=== PATIENT | female | born 1980 | race Caucasian/White ===

== ENCOUNTER 2017-09-04 06:51 | Day surgery (SDC) | payer BC ==
[~2017-09-04 06:51] MED LIST: RINGER'S SOLUTION,LACTATED 1,000 ML IV PRN; ceFAZolin SODIUM 2 GM in DEXTROSE 5 % IN WATER 50 ML IV PRN
[2017-09-04 07:14] LABS: Hematocrit 41.9 % (37.0-47.0); Hemoglobin 14.4 gm/dL (12.5-16.0); Mean Cell Volume 87.1 fl (78-100); Mean Corpuscular Hemoglobin 29.9 pg (27-31); Mean Corpuscular Hgb Conc 34.4 g/dl (32-36); Mean Platelet Volume 9.5 fl (6.0-9.5); Neutrophil # 2.8 K/mm3 (1.3-6.0); Platelet Count 246 K/mm3 (150-450); Red Blood Count 4.81 M/mm3 (4.2-5.4); Red Cell Distribution Width 12.3 % (11.5-14.0); White Blood Count 5.6 K/mm3 (4.0-10.5)
[2017-09-04 07:31] LABS: Albumin * 4.3 gm/dl (3.4-5.0); Anion Gap 12.4 mmol/L (6.8-13.8); BUN/Creatinine Ratio 9.8 (9.0-21.6); Bilirubin, Total 0.4 mg/dL (0.0-1.1); Ca. Corrected For Albumin 8.1 mg/dL (8.4-10.2); Calcium * 8.7 mg/dL (7.9-10.9); Carbon Dioxide 24.7 mmol/L (24-32.6); Potassium 3.1 mmol/L (3.4-4.6); Total Protein 7.5 gm/dL (6.2-8.2)
[2017-09-04] MEDS ORDERED: RINGER'S SOLUTION,LACTATED 1,000 ML IV ONE ×3 (08:00→10:55)
[2017-09-04] MEDS ORDERED: ceFAZolin SODIUM 1 GM VIAL IV ONE (08:15)
[2017-09-04] MEDS ORDERED: BUPIVACAINE HCL 50 ML VIAL IJ ONE (08:30)
--- NOTE | 2017-09-04 11:51 | OR ---
Operative Report - Dictated Report Narrative: DATE OF PROCEDURE: 09/04/2017 PROCEDURE: 1. Total laparoscopic hysterectomy, bilateral salpingectomy 2. Diagnostic cystoscopy. ANESTHESIA: General, endotracheal intubation. PREOPERATIVE DIAGNOSES: 1. Menorrhagia, failed oral contraceptive pills 2. Dysmenorrhea 3. Chronic pelvic pain POSTOPERATIVE DIAGNOSES: 1. Menorrhagia, failed oral contraceptive pills 2. Dysmenorrhea 3. Chronic pelvic pain SURGEON: Nicholas Fajardo M.D. EXCAVATING MACHINE OPERATOR: Letha Mccabe FINDINGS: 1. Normal uterus, ovaries and tubes. There was small menstrual blood in the cul- de-sac (the patient was on her period). 2. There was no signs of endometriosis. 3. On cystoscopy, the bladder appeared intact and bilateral ureteral jets were seen. SPECIMENS: Uterus, cervix, and both tubes (removed in one piece) DRAINS: None. URINE OUTPUT: 1500 ml BLOOD LOSS: 50 ml INTRAOPARATIVE IV FLUIDS: 2400 ml COMPLICATIONS: None. DESCRIPTION OF PROCEDURE: The patient consented to the operation and was taken to the operating room. She was placed on the operating table supine. SCDs were placed on her lower extremities. General anesthesia was induced. Tho grams of ancef was given by IV prior to anesthesia induction. She was repositioned in the dorsal lithotomy position. Her right arm was tucked at her side under the drape. Exam under anesthesia revealed a normal size uterus with minimal descent and with no adnexal mass. The abdomen was prepped with Chloraprep and the vagina was prepped with Betadine. She was draped in the usual sterile fashion. A time-out procedure was conducted to confirm the correct patient for the correct procedure. After time-out, a Sprague catheter was placed into the bladder. A bivalve speculum was placed into the vagina. The vagina and the cervix were prepped with Betadine one more time. The anterior cervix was grasped with a single-tooth tenaculum. The uterus was sounded to 7 cm. A large VCare uterine manipulator was inserted into the uterine cavity. The balloon was inflated with 4 cc of air. The single-tooth tenaculum was removed. Huron speculum was removed. The upper VCare cup was advanced into the vagina to hug the cervix. The lower VCare cup was advanced into the vagina to align with the upper VCare cup and to provide pneumoperitoneum for the procedure. The lower VCare cup was fastened to the uterine manipulator. The surgeon then changed gloves and attention was paid to the abdomen. A small vertical incision was made at the lower edge of the umbilicus. A Veress needle was inserted into the abdominal cavity. Intraabdominal placement was confirmed with a saline drop test and with low entry pressure of 2 mmHg. The abdomen was insufflated with CO2 gas to an intraabdominal pressure of 15 mmHg. The Veress needle was removed. A 5 mm trocar with the laparoscope was inserted through the umbilicus incision into the abdomen. Intraabdominal placement was confirmed with the laparoscope. Survey of the entry site revealed no trauma to the underlying structures. The patient was then placed in Trendelenburg position. Three 5 mm trocars were placed in the lower abdomen. Both left and the right lower quadrant trocars (5 mm) were placed superior and medial to the anterior superior iliac spine to avoid vessels and nerves. A suprapubic trocar ( 5 mm) was placed in the midline. All trocars were placed under the direct visualization of the laparoscope. Survey of the abdomen and pelvis revealed the findings noted above. Attention was now turned to the left side. The left fallopian tube was elevated. The mesosalpinx was divided with the Thunderbeat. The division was carried to the cornual region. The uteroovarian ligament was divided with the Thunderbeat and the division was carried on the broad ligament through the round ligament towards the lower uterine segment. The course of the left ureter was not identified, but believed to be away from the surgical field. The broad ligament incision was into the anterior leaf and the posterior leaf. Anterior leaf of the broad ligament was dissected towards the bladder uterine reflection. The posterior leaf of the broad ligament was dissected towards the uterosacral ligament. The left uterine vessel was isolated and divided with the Thunderbeat. The lower uterine segment was dissected to free the bladder down. The cardinal ligament complex was divided with the Thunderbeat to the level of vaginal cervical junction. Attention was now turned to the right side. The right fallopian tube was elevated. The mesosalpinx was divided with the Thunderbeat. The division was carried to the cornual region. The uteroovarian ligament was divided with the Thunderbeat and the division was carried on the broad ligament through the round ligament towards the lower uterine segment. The course of the right ureter was identified and protected. The broad ligament incision was into the anterior leaf and the posterior leaf. The anterior leaf of the broad ligament was dissected towards the bladder uterine reflection and to meet with the opposite dissection point at the midline. The posterior leaf of the broad ligament was dissected towards the uterosacral ligament. The right uterine vessel was isolated, and divided with the Thunderbeat. The cardinal ligament complex was divided with the Thunderbeat to the level of vaginal cervical junction. The vaginal fornix was seen well through the VCare cup. The Thunderbeat was used to make an anterior colpotomy over the VCare cup groove. Entry into the vagina was without complications. A circumferential incision was made along the vaginal cervical junction using the VCare cup groove as a guide. Bilateral uterosacral ligament was divided. The cervix was completely divided from the vagina. The surgeon moved to the vaginal area to retrieve the specimen. The VCare uterine manipulator was removed. The cervix was grasped with a single tooth tenaculum. The uterus, cervix and both tubes were removed through the vagina in one piece. The vagina was packed with 2 moist laps to keep the pneumoperitoneum. The surgeon then changed gloves and attention was paid back to the abdomen. The pelvis was thoroughly irrigated with saline. The vaginal opening was closed transversely with 0 Vicryl Endoknot suture in an interrupted fashion using intracorporeal suturing technique and extracorporeal knot tying. The uterosacral ligament was sutured to the vaginal cuff corner for cuff support. The pelvis was irrigated with saline. Extra fluid was suctioned out from the abdomen and pelvis. There was hemostasis in all vessel pedicles. The patient was taken out of Trendelenburg. Three lower abdominal trocars were removed. The abdomen was deflated. The trocar at the umbilicus was removed with the laparoscope. The skin incision was closed with 4-0 Monocryl suture and 2 to 3 cc of 0.25% Marcaine was infiltrated around each incision for post op pain management. The incisions were covered with Dermabond. A diagnostic cystoscopy was performed. Vaginal packing was removed and the Sprague catheter was removed. A 70-degree cystoscope was introduced through the urethra into the bladder. Exam of the bladder revealed the bladder was intact. There were urine jets coming out from the left as well as the right ureteral orifice, confirming the integrity of ureters. The cystoscope was removed. The Sprague catheter was not replaced. The patient tolerated the procedure well. All counts were correct and the patient was taken to the recovery room in stable condition. Nicholas Fajardo MD
[2017-09-04] MEDS ORDERED: RINGER'S SOLUTION,LACTATED 1,000 ML IV PRN (11:52)
[2017-09-04] MEDS ORDERED: IBUPROFEN 800 MG TABLET PO ONE (11:52)
[2017-09-04] MEDS ORDERED: oxyCODONE HCL/ACETAMINOPHEN 1 TAB TABLET PO ONE (11:52)
[2017-09-04] MEDS ORDERED: IBUPROFEN 800 MG TABLET PO PRN ×2 (13:07→13:08)
[2017-09-04] MEDS ORDERED: oxyCODONE HCL/ACETAMINOPHEN 1 TAB TABLET ONE (13:13)
[2017-09-04 13:34] VITALS: BP 118/78
== END 2017-09-04 06:52 | disposition home or self-care (01) ==
LOC: AMB 06:51
PROVIDERS: ATTEND Obstetrics & Gynecology
PROC: 0UT94ZZ Resection of Uterus, Percutaneous Endoscopic Approach (ICD-10-PCS; principal; 2017-09-04)
PROC: 0UTC4ZZ Resection of Cervix, Percutaneous Endoscopic Approach (ICD-10-PCS; 2017-09-04)
PROC: 0UT74ZZ Resection of Bilateral Fallopian Tubes, Percutaneous Endoscopic Approach (ICD-10-PCS; 2017-09-04)
DX: N72 Inflammatory disease of cervix uteri (principal); N80.0 Endometriosis of uterus; N92.0 Excessive and frequent menstruation with regular cycle; K21.9 Gastro-esophageal reflux disease without esophagitis; J45.20 Mild intermittent asthma, uncomplicated; M79.7 Fibromyalgia; F41.9 Anxiety disorder, unspecified; F32.9 Major depressive disorder, single episode, unspecified; Z68.29 Body mass index [BMI] 29.0-29.9, adult
CPT/HCPCS: 36415; 80053; 84703; 85025; 86850; 86900; 88305